=== PATIENT | male | born 1980 | race Caucasian/White ===

== ENCOUNTER 2017-02-15 07:28 | Day surgery (SDC) | payer BC ==
[~2017-02-15] VITALS: Ht 170.2 cm; Wt 106.1 kg
--- NOTE | 2017-02-15 09:20 | NUR ---
02/15/17 0920 Jose Manuel Santiago PT SLEEPING AND PASSING AIR FROM HIS COLON.
--- NOTE | 2017-02-16 14:14 | OR ---
[facility] [address], [place] [address] Signed DATE OF PROCEDURE: 02/15/17 PREOPERATIVE DIAGNOSES Diarrhea. Rectal bleeding. Irritable bowel syndrome. POSTOPERATIVE DIAGNOSES Mild gastritis. Unremarkable colonoscopy. PROCEDURES EGD with CLOtest and biopsies of the duodenum and antrum. Colonoscopy with cold biopsies of the terminal ilium and the colon. ESTIMATED BLOOD LOSS: None. INDICATIONS Shaun is a 36-year-old gentleman who came to us from the [facility]. 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 However, he took a job at [employer] in [employer]. He has lived in [place] and [place] in [place]. No one else around him has been sick. Since 2016, he has had a change in bowel habits with frequent diarrhea at least once or twice a week. He said he often feels swollen around the anus and he can see rectal bleeding. He has been trying Imodium and Pepto-Bismol. He had been to his primary care provider. His serum H Pylori was negative. He talked about doing stool studies, but we do not have those results. There is no family history of colon cancer, polyps or inflammatory bowel disease. In the office, I gave Shaun pamphlets on both upper and lower endoscopy. We discussed the nature of the 2 tests along with the risks including, but not limited to gas bloating, crampy abdominal pain, bleeding, perforation requiring surgery, and missed diagnosis. We also discussed the need for IV conscious sedation. He had expressed understanding wished to proceed. PROCEDURE IN DETAIL Shaun was taken into our endoscopy suite and placed in a supine position. The posterior oropharynx was anesthetized with Hurricaine spray. A bite block was utilized for the case. The adult gastroscope was then introduced. He was given 9 mg of Versed and 150 mcg of Fentanyl to cover both cases. The scope was passed out into the stomach and into the duodenum itself. The duodenum and pyloric channel were unremarkable. We took biopsies of the duodenum for his history of diarrhea. Back in the stomach, he had some very mild erythematous changes in the distal half of the stomach. Consequently, we took a biopsy from the antrum for pathologic review as well as CLOtest. Upon retroflexion of scope, we could not get an excellent view of his GE junction. From what we can tell, he Electronically Signed By: AVINASH VINES MD 02/16/17 1414 PATIENT NAME: SHAUN GUZMAN OPERATIVE REPORT DATE OF : 80 PHYSICIAN: AVINASH VINES MD REPORT #: [id number] REPORT IS CONFIDENTIAL AND NOT TO BE RELEASED WITHOUT AUTHORIZATION [facility] [address], [place] [address] Signed does not have a hiatal hernia. There were no gastric or esophageal varices. The scope was withdrawn up through the area of the GE junction, which was compliant without stricture. He had very minimal disruption to the Z-line. There was no Manley mucosa, no distal esophagitis. The middle and upper esophagus were unremarkable. After this, the gas was suctioned out, the gastroscope removed. Shaun tolerated the procedure quite well. Shaun was then rotated into the left lateral decubitus position. He was maintained on IV sedation with Versed and Fentanyl. A digital rectal exam was performed and this was unremarkable. He has very little in the way of hemorrhoid tissue. The adult colonoscope was then introduced and advanced all around into the cecum under direct visualization of camera without difficulty. His prep was good. We turned the scope and went up into his terminal ilium about 15-20 cm. It looked healthy to us. We took biopsies of the terminal ilium for pathologic review. The scope was withdrawn back in the colon and we withdrew the scope slowly through the colon. The colon and rectum appeared unremarkable. We did take biopsies in the colon for pathologic review. Upon retroflexion of scope, there was really no additional pathology noted above the anal canal. After this, the gas was suctioned out. The colonoscope removed. Shaun tolerated the lower endoscopy quite well. RECOMMENDATIONS I will see Shaun back in my office in 7-14 days to review his results. Avinash Vines MD AB/Gee /[id number] cc: Magnus Samuel DO Electronically Signed By: AVINASH VINES MD 02/16/17 1414 PATIENT NAME: SHAUN GUZMAN OPERATIVE REPORT DATE OF : 80 PHYSICIAN: AVINASH VINES MD REPORT #: [id number] REPORT IS CONFIDENTIAL AND NOT TO BE RELEASED WITHOUT AUTHORIZATION
== END 2017-02-15 09:54 | disposition home or self-care (01) ==
LOC: DS 07:28 → OPS 07:28 → DS 09:00 → OPS 09:00
PROVIDERS: Colon & Rectal Surgery
PROC: 0DB98ZX Excision of Duodenum, Via Natural or Artificial Opening Endoscopic, Diagnostic (ICD-10-PCS; 2017-02-15)
PROC: 0DB68ZX Excision of Stomach, Via Natural or Artificial Opening Endoscopic, Diagnostic (ICD-10-PCS; 2017-02-15)
PROC: 0DBB8ZX Excision of Ileum, Via Natural or Artificial Opening Endoscopic, Diagnostic (ICD-10-PCS; principal; 2017-02-15 09:00)
PROC: 0DBE8ZX Excision of Large Intestine, Via Natural or Artificial Opening Endoscopic, Diagnostic (ICD-10-PCS; 2017-02-15 09:00)
DX: K29.50 Unspecified chronic gastritis without bleeding (principal); K58.0 Irritable bowel syndrome with diarrhea; J30.1 Allergic rhinitis due to pollen; G47.33 Obstructive sleep apnea (adult) (pediatric); K64.4 Residual hemorrhoidal skin tags; E78.5 Hyperlipidemia, unspecified; F32.9 Major depressive disorder, single episode, unspecified; F41.9 Anxiety disorder, unspecified; Z85.828 Personal history of other malignant neoplasm of skin; Z90.89 Acquired absence of other organs; Z87.442 Personal history of urinary calculi; Z98.890 Other specified postprocedural states; Z79.899 Other long term (current) drug therapy
CPT/HCPCS: 86677; 99152; 99153; J2250; J3010; J7120